=== PATIENT | female | born 1970 | race Caucasian/White ===

== ENCOUNTER 2016-09-21 21:44 | Inpatient (IN) | payer OTHER ==
[2016-09-21 22:38] VITALS: BMI 27.4
[2016-09-21 22:57] LABS: BASOPHILS # (AUTO) 0.1 X10^3/uL (0.0-0.1); BASOPHILS % (AUTO) 0.8 % (0.2-1.0); EOSINOPHILS # (AUTO) 0.1 x10^3/uL (0.0-0.2); EOSINOPHILS % (AUTO) 1.6 % (0.9-2.9); HEMATOCRIT 38.5 % (36.0-47.0); HEMOGLOBIN 13.2 g/dL (12.0-16.0); LYMPHOCYTES # (AUTO) 2.6 X10^3/uL (1.3-2.9); LYMPHOCYTES % (AUTO) 27.3 % (21.0-51.0); MEAN CORPUSCULAR HEMOGLOBIN 27.5 pg (27.0-34.0); MEAN CORPUSCULAR HGB CONC 34.3 g/dL (33.0-35.0); MEAN CORPUSCULAR VOLUME 80.2 fL (80.0-100.0); MEAN PLATELET VOLUME 8.3 fL (7.4-11.0); MONOCYTES # (AUTO) 0.8 x10^3/uL (0.3-0.8); MONOCYTES % (AUTO) 8.5 % (0.0-13.0); NEUTROPHILS # (AUTO) 5.9 x10^3/uL (2.2-4.8); NEUTROPHILS % (AUTO) 61.8 % (42.0-75.0); PLATELET COUNT 256 X10^3/uL (150.0-450.0); RED CELL DISTRIBUTION WIDTH 13.4 % (11.6-16.5); WHITE BLOOD COUNT 9.5 X10^3/uL (3.6-10.0)
[2016-09-21] MEDS: NS 1000 ML 1,000 ML IV PRN (23:02)
[2016-09-21] MEDS: SOLU-Medrol 125 MG VIAL IVP SCH (23:02)
[2016-09-21] MEDS: ROCEPHIN VIAL 1 GM 1 GM in NS 50 ML IV + SPIKE MINIBAG* 50 ML IV SCH (23:02)
[2016-09-21 23:08] LABS: ALANINE AMINOTRANSFERASE 41 Units/L (12-78); ALKALINE PHOSPHATASE 110 Units/L (46-116); ASPARTATE AMINO TRANSFERASE 21 Units/L (15-37); BLOOD UREA NITROGEN 9 mg/dL (7-18); CALCIUM 8.4 mg/dL (8.5-10.1); CARBON DIOXIDE 27.8 mmol/L (21-32); CHLORIDE 106 mmol/L (98-107); COR CA(FOR HYPOALB) 9.2 mg/dL (8.5-10.1); CREATININE 0.63 mg/dL (0.55-1.02); GLUCOSE 102 mg/dL (65-99); SODIUM 140 mmol/L (136-145); TOTAL PROTEIN 6.5 g/dL (6.4-8.2); eGFR BLACK RACES > 60 (>60); eGFR NON BLACK RACES > 60 (>60)
[2016-09-21] MEDS ORDERED: SALINE 3% 15 ML NEB TX NEB ONE (23:13)
[2016-09-21] MEDS: ZITHROMAX INJ 500 MG VIAL 500 MG in NS 250 ML IV 250 ML IV SCH (23:57)
[2016-09-22] MEDS: DUONEB 0.5 MG/3 MG NEB SCH ×5 (00:53→18:38)
--- NOTE | 2016-09-22 04:18 | RAD ---
Chest AP portable Indication: Pneumonia. Comparison: May 28, 2015 radiograph. Findings: There is no pneumothorax, effusion or consolidation. Heart size is normal. Impression: No acute chest process. Reported By:
[2016-09-22] MEDS ORDERED: ROBITUSSIN DM PO PRN (08:00)
[2016-09-22] MEDS: TUSSIONEX PENNKINETIC SUSP PO SCH ×2 (08:51→20:48)
[2016-09-22] MEDS: PEPCID 20 MG IV PREMIX* 20 MG/50 ML BAG IV SCH ×2 (08:51→20:48)
[2016-09-22] MEDS: ROCEPHIN VIAL 1 GM 1 GM in NS 50 ML IV + SPIKE MINIBAG* 50 ML IV SCH (08:51)
[2016-09-22] MEDS: ZITHROMAX INJ 500 MG VIAL 500 MG in NS 250 ML IV 250 ML IV SCH (08:52)
[2016-09-22] MEDS: SOLU-Medrol 125 MG VIAL IVP SCH ×3 (13:04→22:18)
[2016-09-22] MEDS: DIFLUCAN 100 MG IV (MIX by PHARMACY)* 100 MG/50 ML BAG IV SCH (13:21)
--- NOTE | 2016-09-22 14:01 | DR.H&P ---
H&P - History & Physical for Day of: H&P Date: 09/21/16 - Chief Complaint Chief Complaint: FEVER, CCC - Allergies Allergies/Adverse Reactions: Allergies Allergy/AdvReac Type Severity Reaction Status Date / Time amoxicillin Allergy Verified 09/21/16 22:14 penicillin G Allergy Verified 09/21/16 22:14 - History of Present Illness History of Present Illness: 46 WF DIRECT ADMIT FOR FAILED OUTPT BRONCHITIS. PT HAS TAKEN PO ATBX AND RESP TREATMENTS WITHOUT IMPROVEMENT. PT CONTINUES WITH COUGH, SPUTUM PRODUCTION AND WEAKNESS. PLAN TO ADMIT FOR PNEUMONIA PROTOCOL AND RESUME HOME MEDS - Past Medical History Past Medical History: Anxiety, Arthritis, Depression, GERD - Past Surgical History Surgical History: Cholecystectomy, Hysterectomy, Tonsillectomy, Other - Family History Family Medical History: Diabetes Mellitus, [place], Heart Failure, Hypertension - Social History Does patient currently use any type of tobacco product: No Have you used tobacco products in the last 12 months: No Type of Tobacco Use: None Does any household member use tobacco: No Alcohol Use: Occasionally Drug Use: None - Medications Home Medications: Guaifenesin/Phenylephrine HCl [Deconex Ir 10-385 mg] 1 tab PO Q4HR 09/21/16 [ History Confirmed 09/21/16] - Review of Systems Constitutional: Fever, Chills, Weakness Eyes: No Symptoms Reported ENT: Nose Congestion, Throat Pain Respiratory: Cough, Sputum Cardiovascular: No Symptoms Reported Gastrointestinal: No Symptoms Reported Genitourinary: No Symptoms Reported Musculoskeletal: Neck Pain Skin: No Symptoms Reported Neurological: No Symptoms Reported - Physical Exam Vital Signs: Temperature 97.9 F Pulse Rate [Left Brachial] 117 Pulse Rate 84 Respiratory Rate 18 Blood Pressure [Right Arm] 96/53 Blood Pressure [Left Arm] 123/59 Blood Pressure 123/59 O2 Sat by Pulse Oximetry 92 Oriented: Normal Eyes: Normal Ear: Normal Nose: Normal Throat: Normal Respiratory: Rhonchi Throughout Cardiovascular: Normal : Normal Auscultation: Bowel Sounds: Normal Palpation: Normal Tenderness: Normal Skin: Normal Musculoskeletal: Back:Lumbar Mood Description: Calm Speech Pattern: Clear, Appropriate - Assessment/Plan (1) Bronchitis Status: Acute Plan: ADMIT IV ATBX, CXR ON ADMISSION, RESP THERAPY ADMISSION LABS CBC CMP SPUTUM CULTURES (2) Nausea & vomiting Qualifiers: Vomiting type: V Vomiting Intractability: V Status: Acute Plan: NAUSEA CONTROL (3) ANNAMARIA (generalized anxiety disorder) Status: Chronic (4) GERD (gastroesophageal reflux disease) Qualifiers: Esophagitis presence: E Status: Chronic
--- NOTE | 2016-09-22 14:07 | PCM.PROG ---
Progress Note - Progress Note for Day of Date: 09/22/16 - Subjective Subjective: CONTINUES TO COUGH WITH PLEURITIC CHEST PAIN - Past Medical Family Social History Past Med/Fam/Surg Hx: No changes since H&P Allergies: Allergies amoxicillin Allergy (Verified 09/21/16 22:14) penicillin G Allergy (Verified 09/21/16 22:14) - Review of Systems ROS: No change since H&P - Vital Signs and I&O's Vital Signs: Temperature 97.9 F Pulse Rate [Left Brachial] 117 Pulse Rate 84 Respiratory Rate 18 Blood Pressure [Right Arm] 96/53 Blood Pressure [Left Arm] 123/59 Blood Pressure 123/59 O2 Sat by Pulse Oximetry 92 Intake and Output: Intake & Output 09/20/16 09/21/16 09/22/16 09/23/16 11:59 11:59 11:59 11:59 Intake Total 440 Balance 440 - Physical Exam Oriented: Normal Eyes: Normal Ear: Normal Nose: Normal Throat: Normal Respiratory: Wheezes, Rhonchi Cardiovascular: Normal : Normal Auscultation: Bowel Sounds: Normal Tenderness: Normal Skin: Normal Musculoskeletal: Back:Lumbar Mood Description: Calm Speech Pattern: Clear, Appropriate - Laboratory and Diagnostics Result Diagrams: 09/21/16 22:40 09/21/16 22:40 Labs: 09/22/16 00:00 Sputum - Expectorated Sputum - Final Laboratory WBC 9.5 X10^3/uL (3.6-10.0) 09/21/16 22:40 RBC 4.80 X10^6/uL (3.5-5.4) 09/21/16 22:40 Hgb 13.2 g/dL (12.0-16.0) 09/21/16 22:40 Hct 38.5 % (36.0-47.0) 09/21/16 22:40 MCV 80.2 fL (80.0-100.0) 09/21/16 22:40 MCH 27.5 pg (27.0-34.0) 09/21/16 22:40 MCHC 34.3 g/dL (33.0-35.0) 09/21/16 22:40 RDW 13.4 % (11.6-16.5) 09/21/16 22:40 Plt Count 256 X10^3/uL (150.0-450.0) 09/21/16 22:40 MPV 8.3 fL (7.4-11.0) 09/21/16 22:40 Neut % 61.8 % (42.0-75.0) 09/21/16 22:40 Lymph % 27.3 % (21.0-51.0) 09/21/16 22:40 [place] % 8.5 % (0.0-13.0) 09/21/16 22:40 Eos % 1.6 % (0.9-2.9) 09/21/16 22:40 Baso % 0.8 % (0.2-1.0) 09/21/16 22:40 Neut # 5.9 x10^3/uL (2.2-4.8) H 09/21/16 22:40 Lymph # 2.6 X10^3/uL (1.3-2.9) 09/21/16 22:40 [place] # 0.8 x10^3/uL (0.3-0.8) 09/21/16 22:40 Eos # 0.1 x10^3/uL (0.0-0.2) 09/21/16 22:40 Baso # 0.1 X10^3/uL (0.0-0.1) 09/21/16 22:40 Absolute Nucleated RBC 0.0 /100WBC 09/21/16 22:40 Sodium 140 mmol/L (136-145) 09/21/16 22:40 Corrected Sodium TNP 09/21/16 22:40 Potassium 3.7 mmol/L (3.5-5.1) 09/21/16 22:40 Chloride 106 mmol/L (98-107) 09/21/16 22:40 Carbon Dioxide 27.8 mmol/L (21-32) 09/21/16 22:40 BUN 9 mg/dL (7-18) 09/21/16 22:40 Creatinine 0.63 mg/dL (0.55-1.02) 09/21/16 22:40 Est GFR (MDRD) Af Amer > 60 (>60) 09/21/16 22:40 Est GFR (MDRD) Non-Af > 60 (>60) 09/21/16 22:40 Glucose 102 mg/dL (65-99) H 09/21/16 22:40 Calcium 8.4 mg/dL (8.5-10.1) L 09/21/16 22:40 Corrected Calcium 9.2 mg/dL (8.5-10.1) 09/21/16 22:40 Total Bilirubin 0.30 mg/dL (0.2-1.0) 09/21/16 22:40 AST 21 Units/L (15-37) 09/21/16 22:40 ALT 41 Units/L (12-78) 09/21/16 22:40 Alkaline Phosphatase 110 Units/L (46-116) 09/21/16 22:40 Total Protein 6.5 g/dL (6.4-8.2) 09/21/16 22:40 Albumin 3.0 g/dL (3.4-5.0) L 09/21/16 22:40 Globulin 3.5 g/dL (2.5-4.5) 09/21/16 22:40 Albumin/Globulin Ratio 0.9 Ratio (1.1-2.1) L 09/21/16 22:40 - Plan (1) Bronchitis Status: Acute Plan: IV ATBX, IV SOLU MEDROL, RESP THERAPY, ENCOURAGE ORAL HYDRATION, PULMONARY TOILETING (2) Nausea & vomiting Status: Acute Qualifiers: Vomiting type: V Vomiting Intractability: V Plan: NAUSEA CONTROL (3) ANNAMARIA (generalized anxiety disorder) Status: Chronic Plan: RESUME HOME MEDS (4) GERD (gastroesophageal reflux disease) Status: Chronic Qualifiers: Esophagitis presence: E
[2016-09-23] MEDS: DUONEB 0.5 MG/3 MG NEB SCH ×4 (00:37→16:59)
[2016-09-23 05:49] LABS: BASOPHILS % (AUTO) 0.2 % (0.2-1.0); HEMATOCRIT 36.8 % (36.0-47.0); HEMOGLOBIN 12.2 g/dL (12.0-16.0); LYMPHOCYTES # (AUTO) 0.8 X10^3/uL (1.3-2.9); LYMPHOCYTES % (AUTO) 5.6 % (21.0-51.0); MEAN CORPUSCULAR HEMOGLOBIN 26.7 pg (27.0-34.0); MEAN CORPUSCULAR HGB CONC 33.1 g/dL (33.0-35.0); MEAN CORPUSCULAR VOLUME 80.6 fL (80.0-100.0); MEAN PLATELET VOLUME 10.2 fL (7.4-11.0); MONOCYTES # (AUTO) 0.2 x10^3/uL (0.3-0.8); MONOCYTES % (AUTO) 1.7 % (0.0-13.0); NEUTROPHILS % (AUTO) 92.5 % (42.0-75.0); PLATELET COUNT 243 X10^3/uL (150.0-450.0); RED BLOOD COUNT 4.57 X10^6/uL (3.5-5.4); WHITE BLOOD COUNT 14.1 X10^3/uL (3.6-10.0)
[2016-09-23 06:05] LABS: ALANINE AMINOTRANSFERASE 40 Units/L (12-78); ALBUMIN 2.8 g/dL (3.4-5.0); ALKALINE PHOSPHATASE 100 Units/L (46-116); ASPARTATE AMINO TRANSFERASE 16 Units/L (15-37); BLOOD UREA NITROGEN 5 mg/dL (7-18); CALCIUM 8.4 mg/dL (8.5-10.1); CARBON DIOXIDE 25.5 mmol/L (21-32); CHLORIDE 110 mmol/L (98-107); COR CA(FOR HYPOALB) 9.4 mg/dL (8.5-10.1); COR NA(FOR HYPERGLY) 147 mmol/L (136-145); CREATININE 0.73 mg/dL (0.55-1.02); GLUCOSE 176 mg/dL (65-99); SODIUM 145 mmol/L (136-145); TOTAL PROTEIN 6.3 g/dL (6.4-8.2); eGFR BLACK RACES > 60 (>60); eGFR NON BLACK RACES > 60 (>60)
[2016-09-23 06:27] LABS: PLATELET MORPHOLOGY COMMENT NORMAL (NORMAL)
[2016-09-23] MEDS: SOLU-Medrol 125 MG VIAL IVP SCH ×2 (06:33→06:34)
[2016-09-23] MEDS: ROCEPHIN VIAL 1 GM 1 GM in NS 50 ML IV + SPIKE MINIBAG* 50 ML IV SCH (09:28)
[2016-09-23] MEDS: TUSSIONEX PENNKINETIC SUSP PO SCH ×2 (09:28→20:08)
[2016-09-23] MEDS: ZITHROMAX INJ 500 MG VIAL 500 MG in NS 250 ML IV 250 ML IV SCH (09:28)
[2016-09-23] MEDS: DIFLUCAN 100 MG IV (MIX by PHARMACY)* 100 MG/50 ML BAG IV SCH (09:28)
[2016-09-23] MEDS: PEPCID 20 MG IV PREMIX* 20 MG/50 ML BAG IV SCH ×2 (09:28→20:07)
[2016-09-23] MEDS: NS 1000 ML 1,000 ML IV PRN (14:47)
--- NOTE | 2016-09-23 18:14 | PCM.PROG ---
Progress Note - Progress Note for Day of Date: 09/23/16 - Subjective Subjective: CONTINUES TO COUGH WITH PLEURITIC CHEST PAIN AND MILD SPUTUM PRODUCTION, YEAST INFECTION - Past Medical Family Social History Past Med/Fam/Surg Hx: No changes since H&P Allergies: Allergies amoxicillin Allergy (Verified 09/21/16 22:14) penicillin G Allergy (Verified 09/21/16 22:14) - Review of Systems ROS: No change since H&P - Vital Signs and I&O's Vital Signs: Temperature 98.2 F Pulse Rate [Left Brachial] 68 Pulse Rate 69 Respiratory Rate 18 Blood Pressure [Right Arm] 114/67 Blood Pressure [Left Arm] 123/59 Blood Pressure 123/59 O2 Sat by Pulse Oximetry 94 Intake and Output: Intake & Output 09/21/16 09/22/16 09/23/16 09/24/16 11:59 11:59 11:59 11:59 Intake Total 440 1450 1220 Balance 440 1450 1220 - Physical Exam Oriented: Normal Eyes: Normal Ear: Normal Nose: Normal Throat: Normal Respiratory: Rhonchi (CENTRAL) Cardiovascular: Normal : Normal Auscultation: Bowel Sounds: Normal Tenderness: Normal Skin: Normal Musculoskeletal: Back:Lumbar Mood Description: Calm Speech Pattern: Clear, Appropriate - Laboratory and Diagnostics Result Diagrams: 09/23/16 03:15 09/23/16 03:15 Labs: 09/22/16 00:00 Sputum - Expectorated Sputum Sputum Culture - Preliminary 09/22/16 00:00 Sputum - Expectorated Sputum - Final Laboratory WBC 14.1 X10^3/uL (3.6-10.0) H 09/23/16 03:15 RBC 4.57 X10^6/uL (3.5-5.4) 09/23/16 03:15 Hgb 12.2 g/dL (12.0-16.0) 09/23/16 03:15 Hct 36.8 % (36.0-47.0) 09/23/16 03:15 MCV 80.6 fL (80.0-100.0) 09/23/16 03:15 MCH 26.7 pg (27.0-34.0) L 09/23/16 03:15 MCHC 33.1 g/dL (33.0-35.0) 09/23/16 03:15 RDW 14.0 % (11.6-16.5) 09/23/16 03:15 Plt Count 243 X10^3/uL (150.0-450.0) 09/23/16 03:15 Plt Count Comment Adequate (ADEQUATE) 09/23/16 03:15 MPV 10.2 fL (7.4-11.0) 09/23/16 03:15 Neut % 92.5 % (42.0-75.0) H 09/23/16 03:15 Lymph % 5.6 % (21.0-51.0) L 09/23/16 03:15 White % 1.7 % (0.0-13.0) 09/23/16 03:15 Eos % 0.0 % (0.9-2.9) L 09/23/16 03:15 Baso % 0.2 % (0.2-1.0) 09/23/16 03:15 Neut # 13.0 x10^3/uL (2.2-4.8) H 09/23/16 03:15 Lymph # 0.8 X10^3/uL (1.3-2.9) L 09/23/16 03:15 White # 0.2 x10^3/uL (0.3-0.8) L 09/23/16 03:15 Eos # 0.0 x10^3/uL (0.0-0.2) 09/23/16 03:15 Baso # 0.0 X10^3/uL (0.0-0.1) 09/23/16 03:15 Absolute Nucleated RBC 0.1 /100WBC 09/23/16 03:15 Total Counted 100 09/23/16 03:15 Neutrophils % (Manual) 89 % (39-76) H 09/23/16 03:15 Lymphocytes % (Manual) 9 % (13-43) L 09/23/16 03:15 Monocytes % (Manual) 2 % (4-9) L 09/23/16 03:15 Plt Morphology Comment Normal (NORMAL) 09/23/16 03:15 RBC Morphology Normal (NORMAL) 09/23/16 03:15 Sodium 145 mmol/L (136-145) 09/23/16 03:15 Corrected Sodium 147 mmol/L (136-145) H 09/23/16 03:15 Potassium 3.8 mmol/L (3.5-5.1) 09/23/16 03:15 Chloride 110 mmol/L (98-107) H 09/23/16 03:15 Carbon Dioxide 25.5 mmol/L (21-32) 09/23/16 03:15 BUN 5 mg/dL (7-18) L 09/23/16 03:15 Creatinine 0.73 mg/dL (0.55-1.02) 09/23/16 03:15 Est GFR (MDRD) Af Amer > 60 (>60) 09/23/16 03:15 Est GFR (MDRD) Non-Af > 60 (>60) 09/23/16 03:15 Glucose 176 mg/dL (65-99) H 09/23/16 03:15 Calcium 8.4 mg/dL (8.5-10.1) L 09/23/16 03:15 Corrected Calcium 9.4 mg/dL (8.5-10.1) 09/23/16 03:15 Total Bilirubin 0.20 mg/dL (0.2-1.0) 09/23/16 03:15 AST 16 Units/L (15-37) 09/23/16 03:15 ALT 40 Units/L (12-78) 09/23/16 03:15 Alkaline Phosphatase 100 Units/L (46-116) 09/23/16 03:15 Total Protein 6.3 g/dL (6.4-8.2) L 09/23/16 03:15 Albumin 2.8 g/dL (3.4-5.0) L 09/23/16 03:15 Globulin 3.5 g/dL (2.5-4.5) 09/23/16 03:15 Albumin/Globulin Ratio 0.8 Ratio (1.1-2.1) L 09/23/16 03:15 - Plan (1) Bronchitis Status: Inactive Plan: CONTINUE IV ATBX, IV HYDRATION, ROBITUSSIN DM. REPEAT AM CBC, CMP (2) Nausea & vomiting Status: Acute Qualifiers: Vomiting type: V Vomiting Intractability: V Plan: NAUSEA CONTROL (3) ANNAMARIA (generalized anxiety disorder) Status: Chronic Plan: RESUME HOME MEDS (4) GERD (gastroesophageal reflux disease) Status: Chronic Qualifiers: Esophagitis presence: E (5) Yeast infection Status: Acute Plan: DIFLUCAN, MONISTAT
[2016-09-24] MEDS: DUONEB 0.5 MG/3 MG NEB SCH ×4 (01:25→17:00)
[2016-09-24 05:36] LABS: BASOPHILS # (AUTO) 0.1 X10^3/uL (0.0-0.1); BASOPHILS % (AUTO) 0.4 % (0.2-1.0); HEMATOCRIT 36.6 % (36.0-47.0); LYMPHOCYTES # (AUTO) 1.6 X10^3/uL (1.3-2.9); LYMPHOCYTES % (AUTO) 10.4 % (21.0-51.0); MEAN CORPUSCULAR HEMOGLOBIN 26.8 pg (27.0-34.0); MEAN CORPUSCULAR HGB CONC 32.8 g/dL (33.0-35.0); MEAN CORPUSCULAR VOLUME 81.7 fL (80.0-100.0); MEAN PLATELET VOLUME 10.1 fL (7.4-11.0); MONOCYTES # (AUTO) 0.8 x10^3/uL (0.3-0.8); MONOCYTES % (AUTO) 5.2 % (0.0-13.0); NEUTROPHILS # (AUTO) 12.9 x10^3/uL (2.2-4.8); PLATELET COUNT 238 X10^3/uL (150.0-450.0); RED BLOOD COUNT 4.49 X10^6/uL (3.5-5.4); RED CELL DISTRIBUTION WIDTH 14.1 % (11.6-16.5); WHITE BLOOD COUNT 15.4 X10^3/uL (3.6-10.0)
[2016-09-24 05:47] LABS: ALANINE AMINOTRANSFERASE 35 Units/L (12-78); ALBUMIN 2.5 g/dL (3.4-5.0); ALKALINE PHOSPHATASE 84 Units/L (46-116); ASPARTATE AMINO TRANSFERASE 13 Units/L (15-37); BLOOD UREA NITROGEN 14 mg/dL (7-18); CALCIUM 8.1 mg/dL (8.5-10.1); CARBON DIOXIDE 27.8 mmol/L (21-32); CHLORIDE 110 mmol/L (98-107); COR CA(FOR HYPOALB) 9.3 mg/dL (8.5-10.1); CREATININE 0.67 mg/dL (0.55-1.02); GLUCOSE 109 mg/dL (65-99); SODIUM 145 mmol/L (136-145); TOTAL PROTEIN 5.6 g/dL (6.4-8.2); eGFR BLACK RACES > 60 (>60); eGFR NON BLACK RACES > 60 (>60)
[2016-09-24] MEDS: NS 1000 ML 1,000 ML IV PRN (06:48)
--- NOTE | 2016-09-24 07:13 | RAD ---
HISTORY: Follow up pneumonia Study: Chest one view Comparison: September 21, 2016 Findings: The heart is within normal limits in size. The michelle are normal. The lungs are well inflated. Subtle right basilar infiltrate has developed since the prior examination. The remainder of the lung g[place] are clear. No pleural effusions are identified. The bony thorax is unremarkable. IMPRESSION: Subtle right basilar lung infiltrate Reported By:
[2016-09-24] MEDS: ZITHROMAX INJ 500 MG VIAL 500 MG in NS 250 ML IV 250 ML IV SCH (09:22)
[2016-09-24] MEDS: LEVAQUIN PREMIX IV 750 MG 750 MG/150 ML BAG IV SCH (09:23)
[2016-09-24] MEDS: TUSSIONEX PENNKINETIC SUSP PO SCH ×2 (09:23→21:02)
[2016-09-24] MEDS: PEPCID 20 MG IV PREMIX* 20 MG/50 ML BAG IV SCH ×2 (09:23→21:02)
[2016-09-24] MEDS: NORCO 10/325 TAB PO PRN (10:35)
[2016-09-24] MEDS: DIFLUCAN 100 MG IV (MIX by PHARMACY)* 100 MG/50 ML BAG IV SCH (10:36)
[2016-09-24] MEDS: SOLU-Medrol 40 MG VIAL IVP SCH ×3 (11:00→21:01)
--- NOTE | 2016-09-24 14:41 | PCM.PROG ---
Progress Note - Progress Note for Day of Date: 09/24/16 - Subjective Subjective: MILDLY PRODUCTIVE COUGH, CO VERY FATIGUED AND WEAK. CXR REVEALED RLL PNEUMONIA, CONSULT RESP FOR SMART VEST, ADD LEVAQUIN, SOLU MEDROL IV. REPEAT AM LABS, ENCOURAGE RESP TOILETING - Past Medical Family Social History Past Med/Fam/Surg Hx: No changes since H&P Allergies: Allergies amoxicillin Allergy (Verified 09/21/16 22:14) penicillin G Allergy (Verified 09/21/16 22:14) - Review of Systems ROS: No change since H&P - Vital Signs and I&O's Vital Signs: Temperature 97.7 F Pulse Rate [Left Brachial] 60 Pulse Rate 82 Respiratory Rate 18 Blood Pressure [Right Arm] 111/67 Blood Pressure [Left Arm] 123/75 Blood Pressure 123/59 O2 Sat by Pulse Oximetry 93 Intake and Output: Intake & Output 09/22/16 09/23/16 09/24/16 09/25/16 11:59 11:59 11:59 11:59 Intake Total 440 1450 1920 Balance 440 1450 1920 - Physical Exam Oriented: Normal Eyes: Normal Ear: Normal Nose: Normal Throat: Normal Respiratory: Diminished, Rhonchi (CENTRAL) Cardiovascular: Normal : Normal Auscultation: Bowel Sounds: Normal Tenderness: Normal Skin: Normal Musculoskeletal: Back:Lumbar Mood Description: Calm Speech Pattern: Clear, Appropriate - Laboratory and Diagnostics Result Diagrams: 09/24/16 03:10 09/24/16 03:10 Labs: 09/22/16 00:00 Sputum - Expectorated Sputum Sputum Culture - Final Acinetobacter Lwoffii 09/22/16 00:00 Sputum - Expectorated Sputum - Final Laboratory WBC 15.4 X10^3/uL (3.6-10.0) H 09/24/16 03:10 RBC 4.49 X10^6/uL (3.5-5.4) 09/24/16 03:10 Hgb 12.0 g/dL (12.0-16.0) 09/24/16 03:10 Hct 36.6 % (36.0-47.0) 09/24/16 03:10 MCV 81.7 fL (80.0-100.0) 09/24/16 03:10 MCH 26.8 pg (27.0-34.0) L 09/24/16 03:10 MCHC 32.8 g/dL (33.0-35.0) L 09/24/16 03:10 RDW 14.1 % (11.6-16.5) 09/24/16 03:10 Plt Count 238 X10^3/uL (150.0-450.0) 09/24/16 03:10 Plt Count Comment Adequate (ADEQUATE) 09/23/16 03:15 MPV 10.1 fL (7.4-11.0) 09/24/16 03:10 Neut % 84.0 % (42.0-75.0) H 09/24/16 03:10 Lymph % 10.4 % (21.0-51.0) L 09/24/16 03:10 [place] % 5.2 % (0.0-13.0) 09/24/16 03:10 Eos % 0.0 % (0.9-2.9) L 09/24/16 03:10 Baso % 0.4 % (0.2-1.0) 09/24/16 03:10 Neut # 12.9 x10^3/uL (2.2-4.8) H 09/24/16 03:10 Lymph # 1.6 X10^3/uL (1.3-2.9) 09/24/16 03:10 [place] # 0.8 x10^3/uL (0.3-0.8) 09/24/16 03:10 Eos # 0.0 x10^3/uL (0.0-0.2) 09/24/16 03:10 Baso # 0.1 X10^3/uL (0.0-0.1) 09/24/16 03:10 Absolute Nucleated RBC 0.1 /100WBC 09/24/16 03:10 Total Counted 100 09/23/16 03:15 Neutrophils % (Manual) 89 % (39-76) H 09/23/16 03:15 Lymphocytes % (Manual) 9 % (13-43) L 09/23/16 03:15 Monocytes % (Manual) 2 % (4-9) L 09/23/16 03:15 Plt Morphology Comment Normal (NORMAL) 09/23/16 03:15 RBC Morphology Normal (NORMAL) 09/23/16 03:15 Sodium 145 mmol/L (136-145) 09/24/16 03:10 Corrected Sodium TNP 09/24/16 03:10 Potassium 3.6 mmol/L (3.5-5.1) 09/24/16 03:10 Chloride 110 mmol/L (98-107) H 09/24/16 03:10 Carbon Dioxide 27.8 mmol/L (21-32) 09/24/16 03:10 BUN 14 mg/dL (7-18) 09/24/16 03:10 Creatinine 0.67 mg/dL (0.55-1.02) 09/24/16 03:10 Est GFR (MDRD) Af Amer > 60 (>60) 09/24/16 03:10 Est GFR (MDRD) Non-Af > 60 (>60) 09/24/16 03:10 Glucose 109 mg/dL (65-99) H 09/24/16 03:10 Calcium 8.1 mg/dL (8.5-10.1) L 09/24/16 03:10 Corrected Calcium 9.3 mg/dL (8.5-10.1) 09/24/16 03:10 Total Bilirubin 0.10 mg/dL (0.2-1.0) L 09/24/16 03:10 AST 13 Units/L (15-37) L 09/24/16 03:10 ALT 35 Units/L (12-78) 09/24/16 03:10 Alkaline Phosphatase 84 Units/L (46-116) 09/24/16 03:10 Total Protein 5.6 g/dL (6.4-8.2) L 09/24/16 03:10 Albumin 2.5 g/dL (3.4-5.0) L 09/24/16 03:10 Globulin 3.1 g/dL (2.5-4.5) 09/24/16 03:10 Albumin/Globulin Ratio 0.8 Ratio (1.1-2.1) L 09/24/16 03:10 - Plan (1) Pneumonia Status: Acute Qualifiers: Pneumonia type: P Aspiration pneumonia type: A Laterality: L Lung location: L Plan: IV ATBX, SPUTUM, RESP THERAPY- JET NEBS, PULMONARY TOILETING, SMART VEST. CXR, REPEAT AM LABS, AMBULATE PT (2) Nausea & vomiting Status: Acute Qualifiers: Vomiting type: V Vomiting Intractability: V Plan: NAUSEA CONTROL (3) ANNAMARIA (generalized anxiety disorder) Status: Chronic Plan: RESUME HOME MEDS (4) GERD (gastroesophageal reflux disease) Status: Chronic Qualifiers: Esophagitis presence: E (5) Yeast infection Status: Acute Plan: DIFLUCAN, MONISTAT
[2016-09-24] MEDS ORDERED: MILK OF MAGNESIA PO PRN (19:17)
[2016-09-24] MEDS: PULMICORT NEB TX 0.5 MG NEB SCH (20:09)
[2016-09-24] MEDS: COLACE CAP 100 MG PO SCH (21:02)
[2016-09-24] MEDS ORDERED: MICONAZOLE 7 CRM TOP PRN (21:40)
[2016-09-25] MEDS: DUONEB 0.5 MG/3 MG NEB SCH ×5 (00:04→21:00)
[2016-09-25] MEDS: NS 1000 ML 1,000 ML IV PRN ×2 (01:16→20:32)
[2016-09-25 05:36] LABS: BASOPHILS % (AUTO) 0.2 % (0.2-1.0); EOSINOPHILS % (AUTO) 0.1 % (0.9-2.9); HEMATOCRIT 37.2 % (36.0-47.0); HEMOGLOBIN 12.6 g/dL (12.0-16.0); LYMPHOCYTES # (AUTO) 0.9 X10^3/uL (1.3-2.9); LYMPHOCYTES % (AUTO) 8.1 % (21.0-51.0); MEAN CORPUSCULAR HGB CONC 33.9 g/dL (33.0-35.0); MEAN CORPUSCULAR VOLUME 79.8 fL (80.0-100.0); MEAN PLATELET VOLUME 9.8 fL (7.4-11.0); MONOCYTES # (AUTO) 0.2 x10^3/uL (0.3-0.8); MONOCYTES % (AUTO) 2.2 % (0.0-13.0); NEUTROPHILS # (AUTO) 9.6 x10^3/uL (2.2-4.8); NEUTROPHILS % (AUTO) 89.4 % (42.0-75.0); PLATELET COUNT 232 X10^3/uL (150.0-450.0); RED BLOOD COUNT 4.66 X10^6/uL (3.5-5.4); RED CELL DISTRIBUTION WIDTH 14.2 % (11.6-16.5); WHITE BLOOD COUNT 10.7 X10^3/uL (3.6-10.0)
[2016-09-25 05:40] LABS: ALANINE AMINOTRANSFERASE 44 Units/L (12-78); ALBUMIN 2.7 g/dL (3.4-5.0); ALKALINE PHOSPHATASE 86 Units/L (46-116); ASPARTATE AMINO TRANSFERASE 16 Units/L (15-37); BLOOD UREA NITROGEN 11 mg/dL (7-18); CALCIUM 8.3 mg/dL (8.5-10.1); CARBON DIOXIDE 29.4 mmol/L (21-32); CHLORIDE 106 mmol/L (98-107); COR CA(FOR HYPOALB) 9.3 mg/dL (8.5-10.1); COR NA(FOR HYPERGLY) 142 mmol/L (136-145); CREATININE 0.78 mg/dL (0.55-1.02); GLUCOSE 130 mg/dL (65-99); SODIUM 141 mmol/L (136-145); TOTAL PROTEIN 6.1 g/dL (6.4-8.2); eGFR BLACK RACES > 60 (>60); eGFR NON BLACK RACES > 60 (>60)
[2016-09-25] MEDS: ZITHROMAX INJ 500 MG VIAL 500 MG in NS 250 ML IV 250 ML IV SCH (08:13)
[2016-09-25] MEDS: LEVAQUIN PREMIX IV 750 MG 750 MG/150 ML BAG IV SCH (08:14)
[2016-09-25] MEDS: PEPCID 20 MG IV PREMIX* 20 MG/50 ML BAG IV SCH ×2 (08:14→20:31)
[2016-09-25] MEDS: TUSSIONEX PENNKINETIC SUSP PO SCH ×2 (08:15→20:31)
[2016-09-25] MEDS: DIFLUCAN 100 MG IV (MIX by PHARMACY)* 100 MG/50 ML BAG IV SCH (08:15)
[2016-09-25] MEDS: PULMICORT NEB TX 0.5 MG NEB SCH ×2 (08:39→21:00)
[2016-09-25] MEDS ORDERED: MYCOLOG-II CREAM ONE (08:42)
[2016-09-25] MEDS: MYCOLOG-II CREAM TOP SCH ×2 (10:13→20:35)
--- NOTE | 2016-09-25 11:27 | PCM.PROG ---
Progress Note - Progress Note for Day of Date: 09/25/16 - Subjective Subjective: MS. WYNNE IS A 46 YEAR OLD PATIENT OF 'S ADMITTED FOR BRONCHITIS R/O PNEUMONIA. PATIENT WAS ALERT ON MORNING ROUNDS WITH COMPLAINTS OF PRODUCTIVE COUGH AND WEAKNESS. VITALS THIS AM 97.8, 59, 20, 94%, 134/81. CBC REPORTS WBC 10.7. CXR REVEALED SUBTLE RIGHT BASILAR LUNG INFILTRATE. WE WILL CONTINUE SMART VEST, LEVAQUIN, SOLU MEDROL IV, AND REPEAT AM LABS. - Past Medical Family Social History Past Med/Fam/Surg Hx: No changes since H&P Allergies: Allergies amoxicillin Allergy (Verified 09/21/16 22:14) penicillin G Allergy (Verified 09/21/16 22:14) - Review of Systems ROS: No change since H&P - Vital Signs and I&O's Vital Signs: Temperature 97.8 F Pulse Rate [Right Brachial] 59 Pulse Rate [Left Brachial] 53 Pulse Rate 92 Respiratory Rate 20 Blood Pressure [Right Arm] 134/81 Blood Pressure [Left Arm] 128/82 Blood Pressure 123/59 O2 Sat by Pulse Oximetry 98 Intake and Output: Intake & Output 09/22/16 09/23/16 09/24/16 09/25/16 11:59 11:59 11:59 11:59 Intake Total 440 1450 1920 2220 Balance 440 1450 1920 2220 - Physical Exam Oriented: Normal Eyes: Normal Ear: Normal Nose: Normal Throat: Normal Respiratory: Diminished, Rhonchi (CENTRAL) Cardiovascular: Normal : Normal Auscultation: Bowel Sounds: Normal Palpation: Normal Tenderness: Normal Skin: Normal Musculoskeletal: Back:Lumbar Mood Description: Calm Speech Pattern: Clear, Appropriate - Laboratory and Diagnostics Result Diagrams: 09/25/16 04:35 09/25/16 04:35 Labs: 09/22/16 00:00 Sputum - Expectorated Sputum Sputum Culture - Final Acinetobacter Lwoffii 09/22/16 00:00 Sputum - Expectorated Sputum - Final Laboratory WBC 10.7 X10^3/uL (3.6-10.0) H 09/25/16 04:35 RBC 4.66 X10^6/uL (3.5-5.4) 09/25/16 04:35 Hgb 12.6 g/dL (12.0-16.0) 09/25/16 04:35 Hct 37.2 % (36.0-47.0) 09/25/16 04:35 MCV 79.8 fL (80.0-100.0) L 09/25/16 04:35 MCH 27.0 pg (27.0-34.0) 09/25/16 04:35 MCHC 33.9 g/dL (33.0-35.0) 09/25/16 04:35 RDW 14.2 % (11.6-16.5) 09/25/16 04:35 Plt Count 232 X10^3/uL (150.0-450.0) 09/25/16 04:35 Plt Count Comment Adequate (ADEQUATE) 09/23/16 03:15 MPV 9.8 fL (7.4-11.0) 09/25/16 04:35 Neut % 89.4 % (42.0-75.0) H 09/25/16 04:35 Lymph % 8.1 % (21.0-51.0) L 09/25/16 04:35 [place] % 2.2 % (0.0-13.0) 09/25/16 04:35 Eos % 0.1 % (0.9-2.9) L 09/25/16 04:35 Baso % 0.2 % (0.2-1.0) 09/25/16 04:35 Neut # 9.6 x10^3/uL (2.2-4.8) H 09/25/16 04:35 Lymph # 0.9 X10^3/uL (1.3-2.9) L 09/25/16 04:35 [place] # 0.2 x10^3/uL (0.3-0.8) L 09/25/16 04:35 Eos # 0.0 x10^3/uL (0.0-0.2) 09/25/16 04:35 Baso # 0.0 X10^3/uL (0.0-0.1) 09/25/16 04:35 Absolute Nucleated RBC 0.0 /100WBC 09/25/16 04:35 Total Counted 100 09/23/16 03:15 Neutrophils % (Manual) 89 % (39-76) H 09/23/16 03:15 Lymphocytes % (Manual) 9 % (13-43) L 09/23/16 03:15 Monocytes % (Manual) 2 % (4-9) L 09/23/16 03:15 Plt Morphology Comment Normal (NORMAL) 09/23/16 03:15 RBC Morphology Normal (NORMAL) 09/23/16 03:15 Sodium 141 mmol/L (136-145) 09/25/16 04:35 Corrected Sodium 142 mmol/L (136-145) 09/25/16 04:35 Potassium 3.9 mmol/L (3.5-5.1) 09/25/16 04:35 Chloride 106 mmol/L (98-107) 09/25/16 04:35 Carbon Dioxide 29.4 mmol/L (21-32) 09/25/16 04:35 BUN 11 mg/dL (7-18) 09/25/16 04:35 Creatinine 0.78 mg/dL (0.55-1.02) 09/25/16 04:35 Est GFR (MDRD) Af Amer > 60 (>60) 09/25/16 04:35 Est GFR (MDRD) Non-Af > 60 (>60) 09/25/16 04:35 Glucose 130 mg/dL (65-99) H 09/25/16 04:35 Calcium 8.3 mg/dL (8.5-10.1) L 09/25/16 04:35 Corrected Calcium 9.3 mg/dL (8.5-10.1) 09/25/16 04:35 Total Bilirubin 0.20 mg/dL (0.2-1.0) 09/25/16 04:35 AST 16 Units/L (15-37) 09/25/16 04:35 ALT 44 Units/L (12-78) 09/25/16 04:35 Alkaline Phosphatase 86 Units/L (46-116) 09/25/16 04:35 Total Protein 6.1 g/dL (6.4-8.2) L 09/25/16 04:35 Albumin 2.7 g/dL (3.4-5.0) L 09/25/16 04:35 Globulin 3.4 g/dL (2.5-4.5) 09/25/16 04:35 Albumin/Globulin Ratio 0.8 Ratio (1.1-2.1) L 09/25/16 04:35 - Plan (1) Pneumonia Status: Acute Qualifiers: Pneumonia type: P Aspiration pneumonia type: A Laterality: right Lung location: L Plan: IV ATBX, SPUTUM, RESP THERAPY- JET NEBS, PULMONARY TOILETING, SMART VEST. CXR, REPEAT AM LABS, AMBULATE PT,CONTINUE TO MONITOR
[2016-09-25] MEDS: NORCO 10/325 TAB PO PRN (15:07)
--- NOTE | 2016-09-25 18:21 | RAD ---
HISTORY: Follow up pneumonia Study: Chest two-view Comparison: September 24, 2016 Findings: The heart is within normal limits in size. The michelle are normal. The lungs are now well inflated and clear. The previously noted right basilar lung infiltrate has resolved. The remainder of the lung fi elds are clear. No pleural effusions are identified. The bony thorax is unremarkable. IMPRESSION: Lungs now clear with resolution of the previously noted right basilar lung infiltrate Reported By:
[2016-09-25] MEDS: COLACE CAP 100 MG PO SCH (20:31)
[2016-09-26] MEDS: DUONEB 0.5 MG/3 MG NEB SCH ×5 (00:51→16:47)
[2016-09-26 06:23] LABS: BASOPHILS % (AUTO) 0.3 % (0.2-1.0); EOSINOPHILS % (AUTO) 0.3 % (0.9-2.9); HEMATOCRIT 37.3 % (36.0-47.0); HEMOGLOBIN 12.6 g/dL (12.0-16.0); LYMPHOCYTES % (AUTO) 30.6 % (21.0-51.0); MEAN CORPUSCULAR HEMOGLOBIN 27.1 pg (27.0-34.0); MEAN CORPUSCULAR HGB CONC 33.7 g/dL (33.0-35.0); MEAN CORPUSCULAR VOLUME 80.4 fL (80.0-100.0); MEAN PLATELET VOLUME 9.5 fL (7.4-11.0); MONOCYTES # (AUTO) 0.5 x10^3/uL (0.3-0.8); MONOCYTES % (AUTO) 5.3 % (0.0-13.0); NEUTROPHILS # (AUTO) 6.2 x10^3/uL (2.2-4.8); NEUTROPHILS % (AUTO) 63.5 % (42.0-75.0); PLATELET COUNT 195 X10^3/uL (150.0-450.0); RED BLOOD COUNT 4.64 X10^6/uL (3.5-5.4); RED CELL DISTRIBUTION WIDTH 14.3 % (11.6-16.5); WHITE BLOOD COUNT 9.9 X10^3/uL (3.6-10.0)
[2016-09-26 06:44] LABS: ALANINE AMINOTRANSFERASE 34 Units/L (12-78); ALBUMIN 2.4 g/dL (3.4-5.0); ALKALINE PHOSPHATASE 78 Units/L (46-116); ASPARTATE AMINO TRANSFERASE 12 Units/L (15-37); BLOOD UREA NITROGEN 14 mg/dL (7-18); CALCIUM 7.8 mg/dL (8.5-10.1); CHLORIDE 108 mmol/L (98-107); COR CA(FOR HYPOALB) 9.1 mg/dL (8.5-10.1); GLUCOSE 81 mg/dL (65-99); SODIUM 144 mmol/L (136-145); TOTAL PROTEIN 5.5 g/dL (6.4-8.2); eGFR BLACK RACES > 60 (>60); eGFR NON BLACK RACES > 60 (>60)
[2016-09-26] MEDS ORDERED: K-LYTE EFFERVESCENT PO PRN (06:50)
[2016-09-26] MEDS ORDERED: K-RIDER 10 MEQ/NS 100 ML 10 MEQ/100 ML BAG IV PRN (06:50)
[2016-09-26] MEDS ORDERED: POTASSIUM CHLORIDE LIQ 20 MEQ UDC PO PRN (06:50)
[2016-09-26] MEDS: PULMICORT NEB TX 0.5 MG NEB SCH ×2 (08:01→20:35)
[2016-09-26] MEDS: DIFLUCAN 100 MG IV (MIX by PHARMACY)* 100 MG/50 ML BAG IV SCH (08:14)
[2016-09-26] MEDS: LEVAQUIN PREMIX IV 750 MG 750 MG/150 ML BAG IV SCH (08:14)
[2016-09-26] MEDS: PEPCID 20 MG IV PREMIX* 20 MG/50 ML BAG IV SCH ×2 (08:14→20:29)
[2016-09-26] MEDS: ZITHROMAX INJ 500 MG VIAL 500 MG in NS 250 ML IV 250 ML IV SCH (08:14)
[2016-09-26] MEDS: TUSSIONEX PENNKINETIC SUSP PO SCH ×2 (08:15→20:28)
[2016-09-26] MEDS: K-DUR TAB 20 MEQ PO PRN (08:15)
[2016-09-26] MEDS: MYCOLOG-II CREAM TOP SCH ×2 (08:16→20:29)
--- NOTE | 2016-09-26 11:00 | PCM.PROG ---
Progress Note - Progress Note for Day of Date: 09/26/16 - Subjective Subjective: MS. WYNNE IS A 46 YEAR OLD PATIENT OF 'S ADMITTED FOR BRONCHITIS R/O PNEUMONIA. PATIENT WAS IN BED WITH SMART VEST RUNNING ON MORNING ROUNDS. PATIENT IS WITH COMPLAINTS OF PRODUCTIVE COUGH. PATIENT STATES THAT SHE DOESNT FEEL LIKE SHE IS READY FOR DISCHARGE TODAY. ON EXAMINATION, LUNGS WERE CLEAR TO AUSCULTATION. VITALS THIS AM 98.3, 61, 18, 94%, 120/79. CBC REPORTS WBC 10.7. CMP REPORTS POTASSIUM 3.4, CHLORIDE 108, CALCIUM 7.8, AST 12, ALBUMIN 2.4. CXR WAS MARLY. WE WILL CONTINUE SMART VEST, LEVAQUIN, SOLU MEDROL IV, AND REPEAT AM LABS. - Past Medical Family Social History Past Med/Fam/Surg Hx: No changes since H&P Allergies: Allergies amoxicillin Allergy (Verified 09/21/16 22:14) penicillin G Allergy (Verified 09/21/16 22:14) - Review of Systems ROS: No change since H&P - Vital Signs and I&O's Vital Signs: Temperature 98.3 F Pulse Rate [Right Brachial] 61 Pulse Rate [Left Brachial] 53 Pulse Rate 78 Respiratory Rate 18 Blood Pressure [Right Arm] 120/79 Blood Pressure [Left Arm] 128/82 Blood Pressure 123/59 O2 Sat by Pulse Oximetry 94 Intake and Output: Intake & Output 09/23/16 09/24/16 09/25/16 09/26/16 11:59 11:59 11:59 11:59 Intake Total 1450 1920 2220 2820 Balance 1450 1920 2220 2820 - Physical Exam Oriented: Normal Eyes: Normal Ear: Normal Nose: Normal Throat: Normal Respiratory: Normal Cardiovascular: Normal : Normal Auscultation: Bowel Sounds: Normal Palpation: Normal Tenderness: Normal Skin: Normal Musculoskeletal: Back:Lumbar Mood Description: Calm Speech Pattern: Clear, Appropriate - Laboratory and Diagnostics Result Diagrams: 09/26/16 05:15 09/26/16 05:15 Labs: 09/22/16 00:00 Sputum - Expectorated Sputum Sputum Culture - Final Acinetobacter Lwoffii 09/22/16 00:00 Sputum - Expectorated Sputum - Final Laboratory WBC 9.9 X10^3/uL (3.6-10.0) 09/26/16 05:15 RBC 4.64 X10^6/uL (3.5-5.4) 09/26/16 05:15 Hgb 12.6 g/dL (12.0-16.0) 09/26/16 05:15 Hct 37.3 % (36.0-47.0) 09/26/16 05:15 MCV 80.4 fL (80.0-100.0) 09/26/16 05:15 MCH 27.1 pg (27.0-34.0) 09/26/16 05:15 MCHC 33.7 g/dL (33.0-35.0) 09/26/16 05:15 RDW 14.3 % (11.6-16.5) 09/26/16 05:15 Plt Count 195 X10^3/uL (150.0-450.0) 09/26/16 05:15 Plt Count Comment Adequate (ADEQUATE) 09/23/16 03:15 MPV 9.5 fL (7.4-11.0) 09/26/16 05:15 Neut % 63.5 % (42.0-75.0) 09/26/16 05:15 Lymph % 30.6 % (21.0-51.0) 09/26/16 05:15 Prentiss % 5.3 % (0.0-13.0) 09/26/16 05:15 Eos % 0.3 % (0.9-2.9) L 09/26/16 05:15 Baso % 0.3 % (0.2-1.0) 09/26/16 05:15 Neut # 6.2 x10^3/uL (2.2-4.8) H 09/26/16 05:15 Lymph # 3.0 X10^3/uL (1.3-2.9) H 09/26/16 05:15 Prentiss # 0.5 x10^3/uL (0.3-0.8) 09/26/16 05:15 Eos # 0.0 x10^3/uL (0.0-0.2) 09/26/16 05:15 Baso # 0.0 X10^3/uL (0.0-0.1) 09/26/16 05:15 Absolute Nucleated RBC 0.0 /100WBC 09/26/16 05:15 Total Counted 100 09/23/16 03:15 Neutrophils % (Manual) 89 % (39-76) H 09/23/16 03:15 Lymphocytes % (Manual) 9 % (13-43) L 09/23/16 03:15 Monocytes % (Manual) 2 % (4-9) L 09/23/16 03:15 Plt Morphology Comment Normal (NORMAL) 09/23/16 03:15 RBC Morphology Normal (NORMAL) 09/23/16 03:15 Sodium 144 mmol/L (136-145) 09/26/16 05:15 Corrected Sodium TNP 09/26/16 05:15 Potassium 3.4 mmol/L (3.5-5.1) L 09/26/16 05:15 Chloride 108 mmol/L (98-107) H 09/26/16 05:15 Carbon Dioxide 29.0 mmol/L (21-32) 09/26/16 05:15 BUN 14 mg/dL (7-18) 09/26/16 05:15 Creatinine 0.80 mg/dL (0.55-1.02) 09/26/16 05:15 Est GFR (MDRD) Af Amer > 60 (>60) 09/26/16 05:15 Est GFR (MDRD) Non-Af > 60 (>60) 09/26/16 05:15 Glucose 81 mg/dL (65-99) 09/26/16 05:15 Calcium 7.8 mg/dL (8.5-10.1) L 09/26/16 05:15 Corrected Calcium 9.1 mg/dL (8.5-10.1) 09/26/16 05:15 Total Bilirubin 0.20 mg/dL (0.2-1.0) 09/26/16 05:15 AST 12 Units/L (15-37) L 09/26/16 05:15 ALT 34 Units/L (12-78) 09/26/16 05:15 Alkaline Phosphatase 78 Units/L (46-116) 09/26/16 05:15 Total Protein 5.5 g/dL (6.4-8.2) L 09/26/16 05:15 Albumin 2.4 g/dL (3.4-5.0) L 09/26/16 05:15 Globulin 3.1 g/dL (2.5-4.5) 09/26/16 05:15 Albumin/Globulin Ratio 0.8 Ratio (1.1-2.1) L 09/26/16 05:15 - Plan (1) Pneumonia Status: Acute Qualifiers: Pneumonia type: P Aspiration pneumonia type: A Laterality: right Lung location: L Plan: IV ATBX, SPUTUM, RESP THERAPY- JET NEBS, PULMONARY TOILETING, SMART VEST, CXR, REPEAT AM LABS, AMBULATE PT,CONTINUE TO MONITOR
--- NOTE | 2016-09-26 16:53 | RAD ---
HISTORY: 46-year-old female with shortness of breath. Study: Single frontal view of the chest. Comparison: Chest radiographs September 25, 2016. Findings: The trachea is midline. The cardiac silhouette is unremarkable. The lungs are clear without focal infiltrate or effusion. The bony thorax is unremarkable. IMPRESSION: 1. No acute cardiopulmonary disease. Reported By:
[2016-09-26] MEDS: COLACE CAP 100 MG PO SCH (20:28)
[2016-09-26] MEDS ORDERED: ZANTAC PO ONE (20:36)
[2016-09-27] MEDS: DUONEB 0.5 MG/3 MG NEB SCH ×2 (00:46→05:09)
[2016-09-27 05:36] LABS: ALANINE AMINOTRANSFERASE 33 Units/L (12-78); ALBUMIN 2.6 g/dL (3.4-5.0); ALKALINE PHOSPHATASE 87 Units/L (46-116); ASPARTATE AMINO TRANSFERASE 11 Units/L (15-37); BLOOD UREA NITROGEN 10 mg/dL (7-18); CALCIUM 8.3 mg/dL (8.5-10.1); CARBON DIOXIDE 31.2 mmol/L (21-32); CHLORIDE 102 mmol/L (98-107); COR CA(FOR HYPOALB) 9.4 mg/dL (8.5-10.1); CREATININE 0.67 mg/dL (0.55-1.02); GLUCOSE 76 mg/dL (65-99); SODIUM 142 mmol/L (136-145); eGFR BLACK RACES > 60 (>60); eGFR NON BLACK RACES > 60 (>60)
[2016-09-27 05:41] LABS: BASOPHILS % (AUTO) 0.3 % (0.2-1.0); EOSINOPHILS # (AUTO) 0.1 x10^3/uL (0.0-0.2); EOSINOPHILS % (AUTO) 1.2 % (0.9-2.9); HEMATOCRIT 40.7 % (36.0-47.0); HEMOGLOBIN 13.8 g/dL (12.0-16.0); LYMPHOCYTES # (AUTO) 3.4 X10^3/uL (1.3-2.9); MEAN CORPUSCULAR HGB CONC 33.8 g/dL (33.0-35.0); MEAN CORPUSCULAR VOLUME 79.8 fL (80.0-100.0); MEAN PLATELET VOLUME 9.5 fL (7.4-11.0); MONOCYTES # (AUTO) 0.6 x10^3/uL (0.3-0.8); MONOCYTES % (AUTO) 5.9 % (0.0-13.0); NEUTROPHILS # (AUTO) 5.4 x10^3/uL (2.2-4.8); NEUTROPHILS % (AUTO) 56.6 % (42.0-75.0); PLATELET COUNT 215 X10^3/uL (150.0-450.0); RED CELL DISTRIBUTION WIDTH 14.2 % (11.6-16.5); WHITE BLOOD COUNT 9.5 X10^3/uL (3.6-10.0)
--- NOTE | 2016-09-27 06:54 | RAD ---
HISTORY: Shortness of breath Study: Chest one view Comparison: September 26, 2016 Findings: The trachea is midline. The cardiac silhouette is unremarkable. The lungs are clear without focal infiltrate or effusion. The bony thorax is unremarkable. IMPRESSION: 1. No acute cardiopulmonary disease. Reported By:
[2016-09-27] MEDS: PULMICORT NEB TX 0.5 MG NEB SCH (08:10)
[2016-09-27] MEDS: PEPCID 20 MG IV PREMIX* 20 MG/50 ML BAG IV SCH (08:50)
[2016-09-27] MEDS: DIFLUCAN 100 MG IV (MIX by PHARMACY)* 100 MG/50 ML BAG IV SCH (08:50)
[2016-09-27] MEDS: LEVAQUIN PREMIX IV 750 MG 750 MG/150 ML BAG IV SCH (08:50)
[2016-09-27] MEDS: K-DUR TAB 20 MEQ PO PRN (08:51)
[2016-09-27] MEDS: MYCOLOG-II CREAM TOP SCH (08:52)
[2016-09-27] MEDS: TUSSIONEX PENNKINETIC SUSP PO SCH (08:52)
[2016-09-27 11:18] VITALS: BP 140/92
== END 2016-09-27 11:45 | disposition home or self-care (01) | DRG 194 ==
LOC: MED/SURG 21:44
PROVIDERS: ADMIT Internal Medicine; ATTEND Internal Medicine
DX: J16.8 Pneumonia due to other specified infectious organisms (principal); B37.89 Other sites of candidiasis; J20.8 Acute bronchitis due to other specified organisms; R53.1 Weakness; F41.8 Other specified anxiety disorders; M13.89 Other specified arthritis, multiple sites; K21.9 Gastro-esophageal reflux disease without esophagitis; F32.89 Other specified depressive episodes; R11.2 Nausea with vomiting, unspecified; B96.89 Other specified bacterial agents as the cause of diseases classified elsewhere
CPT/HCPCS: 36415; 71010; 71020; 80053; 84132; 85025; 87070; 87077; 87186; 87205; 94640; 94669; 94760; 99221; A4222; S0028; J0456; J0696; J1956; J2920; J2930; J7620; J7626

== ENCOUNTER 2016-12-16 13:12 | Day surgery (SDC) | payer OTHER ==
[2016-12-16] MEDS ORDERED: D5 LR 1000 ML 1,000 ML IV ONE (13:18)
[2016-12-16] MEDS ORDERED: DIPRIVAN VIAL 20 ML ONE (14:35)
[2016-12-16 15:15] VITALS: BP 118/67
== END 2016-12-16 15:10 | disposition home or self-care (01) ==
LOC: SURG1 13:12
PROVIDERS: ATTEND Internal Medicine
PROC: 0DJD8ZZ Inspection of Lower Intestinal Tract, Via Natural or Artificial Opening Endoscopic (ICD-10-PCS; principal; 2016-12-16 17:30)
PROC: 0DB68ZX Excision of Stomach, Via Natural or Artificial Opening Endoscopic, Diagnostic (ICD-10-PCS; principal; 2016-12-16 17:30)
DX: K44.9 Diaphragmatic hernia without obstruction or gangrene (principal); K20.8 Other esophagitis; K29.60 Other gastritis without bleeding; K21.9 Gastro-esophageal reflux disease without esophagitis; R10.84 Generalized abdominal pain; R11.0 Nausea
CPT/HCPCS: A4217; J3490; J7120

== ENCOUNTER → 2017-08-09 | Outpatient (CLI) | payer OTHER ==
--- NOTE | 2017-08-09 14:53 | MG ---
HISTORY: SCREENING Comparison: 04/29/2016 FINDINGS: Bilateral CC and MLO projections of the right and left breast were obtained. Scattered fibroglandula r tissue is seen to be present. No significant architectural distortion, mass or clustered microcalc ifications can be observed to suggest malignancy. No skin thickening or nipple retraction is appreci ated. No pathological lymphadenopathy can be identified. IMPRESSION: NO RADIOGRAPHIC EVIDENCE OF MALIGNANCY. ACR CATEGORY I - NEGATIVE EXAM. FOLLOW-UP EXAM 1 YEAR. Diagnostic CAD was utilized and reviewed. * 0 (ZERO) - ASSESSMENT INCOMPLETE; ADDITIONAL IMAGING IS NEEDED. * 1/ (ONE) - NEGATIVE. * 2/II (TWO) - BENIGN FINDINGS. * 3/III (THREE) - PROBABLY BENIGN FINDING; SHORT INTERVAL FOLLOW-UP SUGGESTED. * 4/IV (FOUR) - SUSPICIOUS ABNORMALITY; BIOPSY SHOULD BE CONSIDERED. * 5/V - HIGHLY SUSPICIOUS OF MALIGNANCY; BIOPSY SHOULD BE PERFORMED. A NEGATIVE X-RAY REPORT SHOULD NOT DELAY BIOPSY IF A DOMINANT OR CLINICALLY SUSPICIOUS MASS IS PRESENT; 4 TO 8 PERCENT OF CANCERS ARE NOT IDENTIFIED BY X-RAY. A NEGA TIVE REPORT MAY REINFORCE THE CLINICAL IMPRESSION. ADENOSIS AND DENSE BREASTS MAY OBSCURE AN UNDERLY ING NEOPLASM. Reported By:
== END ==
LOC: RAD 08:38
PROVIDERS: ATTEND Obstetrics & Gynecology
DX: Z12.31 Encounter for screening mammogram for malignant neoplasm of breast (principal)
CPT/HCPCS: 77067

== ENCOUNTER 2017-11-28 11:28 | Observation (INO) ==
[2017-11-28 12:59] VITALS: BMI 27.4
--- NOTE | 2017-11-28 12:59 | DR.H&P ---
H&P - History & Physical for Day of: H&P Date: 11/28/17 - Chief Complaint Chief Complaint: "migraine for 7 days" - History of Present Illness History of Present Illness: 47 WF DIRECT ADMIT FROM DR ROSA OFFICE AFTER PRESENTING WITH CO INTRACTABLE MIGRAINE X 7 DAYS, WAS EVALUATED IN ER, GIVEN IM TORADOL WITHOUT RELIEF. PT HAS TAKEN PRESCRIPTION FIORICET, HYDROCODONE AND MOTRIN 800MG WITHOUT IMPROVEMENT. PT CO VISION IMPAIRMENT, DIZZINESS AND HUERTA. PT HAS PMH OF HTN, AR, C SPINE DDD. PT ADMITTED FOR TREATMENT OF INTRACTALBE MIGRAINE - Past Medical History Past Medical History: Anxiety, Arthritis, Depression, GERD - Past Surgical History Surgical History: Cholecystectomy, Hysterectomy, Tonsillectomy, Other - Family History Family Medical History: Diabetes Mellitus, MD, Heart Failure, Hypertension - Social History Does patient currently use any type of tobacco product: No Have you used tobacco products in the last 12 months: No Type of Tobacco Use: Cigarettes Does any household member use tobacco: No Alcohol Use: None Drug Use: None - Medications Home Medications: amoxicillin Allergy (Verified 09/21/16 22:14) penicillin G Allergy (Verified 09/21/16 22:14) - Review of Systems Constitutional: Weakness Eyes: Vision Change ENT: No Symptoms Reported Respiratory: No Symptoms Reported Cardiovascular: No Symptoms Reported Gastrointestinal: Nausea, Vomiting Genitourinary: No Symptoms Reported Musculoskeletal: Neck Pain Skin: No Symptoms Reported Neurological: Other (HUERTA, DIZZINESS) - Physical Exam Vital Signs: Blood Pressure [Right Arm] 118/80 Blood Pressure [Left Arm] 140/92 Blood Pressure 118/67 Oriented: Normal Eyes: Blurred Vision Ear: Normal Nose: Normal Throat: Normal Respiratory: Clear Throughout Cardiovascular: Normal : Normal Auscultation: Bowel Sounds: Normal Palpation: Normal Tenderness: Normal Skin: Decreased Turgur Musculoskeletal: Tender Psychiatric: Normal Mood Description: Calm Speech Pattern: Clear, Appropriate - Assessment/Plan (1) Intractable migraine Status: Acute Plan: ADMIT, CT HEAD W/O. PAIN AND NAUSEA CONTROL, HYDRATE. SUPPLEMENTAL O2, VERIFY HOME MEDS. PHENERGAN, TORADOL, BP CONTROL. ADMISSION LABS CBC CMP CRP SED RATE (2) Vision impairment Status: Acute (3) ANNAMARIA (generalized anxiety disorder) Status: Chronic (4) GERD (gastroesophageal reflux disease) Status: Chronic - Allergies Allergies/Adverse Reactions: Allergies Allergy/AdvReac Type Severity Reaction Status Date / Time amoxicillin Allergy Verified 09/21/16 22:14 penicillin G Allergy Verified 09/21/16 22:14
[2017-11-28] MEDS: NS 1000 ML 1,000 ML IV SCH (13:04)
[2017-11-28] MEDS: PHENERGAN INJ 25 MG IVP PRN (13:05)
[2017-11-28] MEDS: TORADOL 15 MG VIAL IVP PRN (13:05)
[2017-11-28] MEDS ORDERED: ZANTAC PO ONE (13:10)
[2017-11-28 13:16] LABS: BASOPHILS # (AUTO) 0.1 X10^3/uL (0.0-0.1); BASOPHILS % (AUTO) 0.9 % (0.2-1.0); EOSINOPHILS # (AUTO) 0.1 x10^3/uL (0.0-0.2); EOSINOPHILS % (AUTO) 1.7 % (0.9-2.9); HEMOGLOBIN 13.6 g/dL (12.0-16.0); LYMPHOCYTES # (AUTO) 1.7 X10^3/uL (1.3-2.9); LYMPHOCYTES % (AUTO) 25.8 % (21.0-51.0); MEAN CORPUSCULAR HEMOGLOBIN 26.9 pg (27.0-34.0); MEAN CORPUSCULAR HGB CONC 33.1 g/dL (33.0-35.0); MEAN CORPUSCULAR VOLUME 81.2 fL (80.0-100.0); MEAN PLATELET VOLUME 8.7 fL (7.4-11.0); MONOCYTES # (AUTO) 0.3 x10^3/uL (0.3-0.8); MONOCYTES % (AUTO) 4.6 % (0.0-13.0); NEUTROPHILS # (AUTO) 4.4 x10^3/uL (2.2-4.8); PLATELET COUNT 260 X10^3/uL (150.0-450.0); RED BLOOD COUNT 5.05 X10^6/uL (3.5-5.4); RED CELL DISTRIBUTION WIDTH 14.2 % (11.6-16.5); WHITE BLOOD COUNT 6.6 X10^3/uL (3.6-10.0)
[2017-11-28 13:25] LABS: ALANINE AMINOTRANSFERASE 29 Units/L (12-78); ALBUMIN 3.3 g/dL (3.4-5.0); ALKALINE PHOSPHATASE 124 Units/L (46-116); ASPARTATE AMINO TRANSFERASE 20 Units/L (15-37); BLOOD UREA NITROGEN 13 mg/dL (7-18); CALCIUM 8.5 mg/dL (8.5-10.1); CARBON DIOXIDE 32.7 mmol/L (21-32); CHLORIDE 106 mmol/L (98-107); COR CA(FOR HYPOALB) 9.1 mg/dL (8.5-10.1); COR NA(FOR HYPERGLY) 144 mmol/L (136-145); CREATININE 0.87 mg/dL (0.55-1.02); SODIUM 144 mmol/L (136-145); TOTAL PROTEIN 6.7 g/dL (6.4-8.2); eGFR NON BLACK RACES > 60 (>60)
[2017-11-28] MEDS: ZANTAC PO SCH (13:31)
[2017-11-28] MEDS ORDERED: ZANTAC PO SCH (14:00)
[2017-11-28] MEDS ORDERED: ESTRACE PO SCH (14:00)
[2017-11-28] MEDS: PERCOCET TAB 5/325 MG PO PRN (16:00)
[2017-11-28] MEDS: FLEXERIL TAB 10 MG PO PRN (16:00)
--- NOTE | 2017-11-28 16:23 | CT ---
HISTORY: Headache with nausea Study: CT brain without contrast Comparison: None Technique: Multiple axial images of the brain were obtained from the skull base to the vertex without administra tion of IV contrast. Findings: No acute intraparenchymal hemorrhage or mass can be identified. No extra-axial fluid collections are seen. No alteration in the attenuation of the brain parenchyma can be identified to suggest acute o r subacute ischemic change. The ventricular system is symmetric and nondilated. The extracranial st ructures are grossly unremarkable. IMPRESSION: 1. No acute intracranial process can be identified. Reported By:
[2017-11-28] MEDS ORDERED: DECADRON INJ PRESERVATIVE-FREE IM ONE (18:11)
[2017-11-28] MEDS ORDERED: DECADRON INJ IM ONE (18:15)
[2017-11-28] MEDS ORDERED: DEMEROL INJ IM PRN (18:17)
[2017-11-28] MEDS: PROTONIX TAB 40 MG PO SCH (20:11)
[2017-11-28] MEDS: COLACE CAP 100 MG PO SCH (20:11)
[2017-11-28] MEDS: ESTRACE PO SCH (20:13)
[2017-11-28] MEDS ORDERED: K-RIDER 10 MEQ/NS 100 ML 10 MEQ/100 ML BAG IV PRN (21:16)
[2017-11-28] MEDS ORDERED: POTASSIUM CHL 60 MEQ/NS 0.45% 500 ML IV PRN (21:16)
[2017-11-28] MEDS ORDERED: POTASSIUM CHLORIDE LIQ 20 MEQ UDC PO PRN (21:16)
[2017-11-28] MEDS ORDERED: POTASSIUM CHL 40 MEQ/NS 0.45% 500 ML IV PRN (21:16)
[2017-11-28] MEDS ORDERED: K-LYTE EFFERVESCENT PO PRN (21:16)
[2017-11-28] MEDS: MAGNESIUM SULFATE 1 GRAM/100 mL PREMIX 1 GM/100 ML BAG IV PRN ×2 (21:38→23:22)
[2017-11-28] MEDS ORDERED: K-DUR TAB 20 MEQ PO SCH (22:00)
[2017-11-29] MEDS: TORADOL 15 MG VIAL IVP PRN ×2 (02:07→22:54)
[2017-11-29] MEDS: NS 1000 ML 1,000 ML IV SCH ×2 (04:00→17:12)
[2017-11-29 05:33] LABS: BASOPHILS % (AUTO) 0.2 % (0.2-1.0); HEMATOCRIT 40.7 % (36.0-47.0); HEMOGLOBIN 13.7 g/dL (12.0-16.0); LYMPHOCYTES # (AUTO) 0.7 X10^3/uL (1.3-2.9); LYMPHOCYTES % (AUTO) 10.6 % (21.0-51.0); MEAN CORPUSCULAR HEMOGLOBIN 27.5 pg (27.0-34.0); MEAN CORPUSCULAR HGB CONC 33.8 g/dL (33.0-35.0); MEAN CORPUSCULAR VOLUME 81.4 fL (80.0-100.0); MEAN PLATELET VOLUME 9.2 fL (7.4-11.0); MONOCYTES # (AUTO) 0 x10^3/uL (0.3-0.8); MONOCYTES % (AUTO) 0.7 % (0.0-13.0); NEUTROPHILS # (AUTO) 5.4 x10^3/uL (2.2-4.8); NEUTROPHILS % (AUTO) 88.5 % (42.0-75.0); PLATELET COUNT 269 X10^3/uL (150.0-450.0); RED CELL DISTRIBUTION WIDTH 13.9 % (11.6-16.5); WHITE BLOOD COUNT 6.2 X10^3/uL (3.6-10.0)
[2017-11-29 05:38] LABS: ALANINE AMINOTRANSFERASE 34 Units/L (12-78); ALBUMIN 3.2 g/dL (3.4-5.0); ALKALINE PHOSPHATASE 132 Units/L (46-116); ASPARTATE AMINO TRANSFERASE 18 Units/L (15-37); BLOOD UREA NITROGEN 12 mg/dL (7-18); CALCIUM 8.4 mg/dL (8.5-10.1); CARBON DIOXIDE 29.9 mmol/L (21-32); CHLORIDE 105 mmol/L (98-107); COR NA(FOR HYPERGLY) 143 mmol/L (136-145); CREATININE 0.85 mg/dL (0.55-1.02); MAGNESIUM 2.4 mg/dL (1.7-2.9); SODIUM 141 mmol/L (136-145); TOTAL PROTEIN 6.9 g/dL (6.4-8.2); eGFR NON BLACK RACES > 60 (>60)
[2017-11-29] MEDS: PERCOCET TAB 5/325 MG PO PRN ×2 (07:26→18:22)
[2017-11-29] MEDS: PHENERGAN INJ 25 MG IVP PRN ×2 (07:27→18:31)
[2017-11-29] MEDS: FLEXERIL TAB 10 MG PO PRN (07:27)
[2017-11-29] MEDS: ESTRACE PO SCH (08:08)
[2017-11-29] MEDS ORDERED: IMITREX INJ SC ONE (08:18)
[2017-11-29] MEDS ORDERED: IMITREX TAB PO ONE ×2 (08:28→17:17)
--- NOTE | 2017-11-29 10:17 | RAD ---
HISTORY: Neck pain Study: Cervical spine five views Comparison: None Findings: Prevertebral soft tissues are normal. The alignment is normal. The vertebral bodies are of average he ight. The disc heights are preserved. The posterior elements are intact. The neural foramina are morrison nt. IMPRESSION: No significant abnormality identified Reported By:
[2017-11-29] MEDS ORDERED: DEMEROL INJ IVP ONE (12:35)
[2017-11-29] MEDS ORDERED: TORADOL 30 MG VIAL IVP ONE (12:48)
--- NOTE | 2017-11-29 17:28 | PCM.PROG ---
Progress Note - Progress Note for Day of Date of Exam: 11/29/17 - Subjective Subjective: 47 WF ADMITTED ON 11/29 WITH INTRACTABLE MIGRAINE. PT HAD CT HEAD WITHOUT ACUTE FINDINGS. PT GIVEN PAIN AND NAUSEA CONTROL, BP MONITORING AND CONTINUES WITH CO HEADACHE AND NECK PAIN WITH NAUSEA. 250CCNS BOLUS, IMETREX SQ X1 DOSE, TORADOL IV, ENCOURAGED HYDRATION - Past Medical Family Social History Past Med/Fam/Surg Hx: No changes since H&P Allergies: Allergies amoxicillin Allergy (Verified 09/21/16 22:14) penicillin G Allergy (Verified 09/21/16 22:14) - Review of Systems ROS: No change since H&P - Vital Signs and I&O's Vital Signs: Temperature 98.6 F Pulse Rate [Left Radial] 81 Respiratory Rate 20 Blood Pressure [Right Arm] 90/50 Blood Pressure [Left Arm] 140/92 Blood Pressure 118/67 O2 Sat by Pulse Oximetry 96 Intake and Output: Intake & Output 11/27/17 11/28/17 11/29/17 11/30/17 11:59 11:59 11:59 11:59 Intake Total 1285 / 1285 1675 / 1675 Balance 1285 / 1285 1675 / 1675 - Physical Exam Oriented: Normal Eyes: Blurred Vision Ear: Normal Nose: Normal Throat: Normal Respiratory: Normal Cardiovascular: Normal : Normal Auscultation: Bowel Sounds: Normal Tenderness: Normal Skin: Decreased Turgur Musculoskeletal: Tender Psychiatric: Normal Mood Description: Calm Speech Pattern: Clear, Appropriate - Laboratory and Diagnostics Result Diagrams: 11/29/17 04:34 11/29/17 04:34 Labs: Laboratory WBC 6.2 X10^3/uL (3.6-10.0) 11/29/17 04:34 RBC 5.00 X10^6/uL (3.5-5.4) 11/29/17 04:34 Hgb 13.7 g/dL (12.0-16.0) 11/29/17 04:34 Hct 40.7 % (36.0-47.0) 11/29/17 04:34 MCV 81.4 fL (80.0-100.0) 11/29/17 04:34 MCH 27.5 pg (27.0-34.0) 11/29/17 04:34 MCHC 33.8 g/dL (33.0-35.0) 11/29/17 04:34 RDW 13.9 % (11.6-16.5) 11/29/17 04:34 Plt Count 269 X10^3/uL (150.0-450.0) 11/29/17 04:34 MPV 9.2 fL (7.4-11.0) 11/29/17 04:34 Neut % (Auto) 88.5 % (42.0-75.0) H 11/29/17 04:34 Lymph % (Auto) 10.6 % (21.0-51.0) L 11/29/17 04:34 Wetzel % (Auto) 0.7 % (0.0-13.0) 11/29/17 04:34 Eos % (Auto) 0.0 % (0.9-2.9) L 11/29/17 04:34 Baso % (Auto) 0.2 % (0.2-1.0) 11/29/17 04:34 Neut # (Auto) 5.4 x10^3/uL (2.2-4.8) H 11/29/17 04:34 Lymph # (Auto) 0.7 X10^3/uL (1.3-2.9) L 11/29/17 04:34 Wetzel # (Auto) 0 x10^3/uL (0.3-0.8) L 11/29/17 04:34 Eos # (Auto) 0.0 x10^3/uL (0.0-0.2) 11/29/17 04:34 Baso # (Auto) 0.0 X10^3/uL (0.0-0.1) 11/29/17 04:34 Absolute Nucleated RBC 0.0 /100WBC 11/29/17 04:34 Sodium 141 mmol/L (136-145) 11/29/17 04:34 Corrected Sodium 143 mmol/L (136-145) 11/29/17 04:34 Potassium 4.2 mmol/L (3.5-5.1) 11/29/17 04:34 Chloride 105 mmol/L (98-107) 11/29/17 04:34 Carbon Dioxide 29.9 mmol/L (21-32) 11/29/17 04:34 BUN 12 mg/dL (7-18) 11/29/17 04:34 Creatinine 0.85 mg/dL (0.55-1.02) 11/29/17 04:34 Est GFR (MDRD) Af Amer > 60 (>60) 11/29/17 04:34 Est GFR (MDRD) Non-Af > 60 (>60) 11/29/17 04:34 Glucose 166 mg/dL (65-99) H 11/29/17 04:34 Hemoglobin A1c 5.7 % 11/29/17 04:15 Calcium 8.4 mg/dL (8.5-10.1) L 11/29/17 04:34 Corrected Calcium 9.0 mg/dL (8.5-10.1) 11/29/17 04:34 Magnesium 2.4 mg/dL (1.7-2.9) 11/29/17 04:34 Total Bilirubin 0.20 mg/dL (0.2-1.0) 11/29/17 04:34 AST 18 Units/L (15-37) 11/29/17 04:34 ALT 34 Units/L (12-78) 11/29/17 04:34 Alkaline Phosphatase 132 Units/L (46-116) H 11/29/17 04:34 Total Protein 6.9 g/dL (6.4-8.2) 11/29/17 04:34 Albumin 3.2 g/dL (3.4-5.0) L 11/29/17 04:34 Globulin 3.7 g/dL (2.5-4.5) 11/29/17 04:34 Albumin/Globulin Ratio 0.9 Ratio (1.1-2.1) L 11/29/17 04:34 - Plan (1) Intractable migraine Status: Acute Plan: CT HEAD W/O ACUTE CHANGES. PAIN AND NAUSEA CONTROL, HYDRATE. SUPPLEMENTAL O2, VERIFY HOME MEDS. PHENERGAN, TORADOL, BP CONTROL. C SPINE, AM LABS (2) Vision impairment Status: Acute (3) ANNAMARIA (generalized anxiety disorder) Status: Chronic (4) GERD (gastroesophageal reflux disease) Status: Chronic
[2017-11-29] MEDS: FLONASE NASAL SPRAY ENOSTRIL SCH (18:25)
[2017-11-29] MEDS: CLARITIN-D 12 HOUR TAB PO SCH (18:26)
[2017-11-29] MEDS: PROTONIX TAB 40 MG PO SCH (20:28)
[2017-11-29] MEDS: COLACE CAP 100 MG PO SCH (20:28)
[2017-11-30] MEDS: PERCOCET TAB 5/325 MG PO PRN ×2 (03:52→09:22)
[2017-11-30] MEDS: CLARITIN-D 12 HOUR TAB PO SCH (05:31)
[2017-11-30] MEDS: NS 1000 ML 1,000 ML IV SCH (07:19)
[2017-11-30] MEDS ORDERED: ZITHROMAX INJ 500 MG VIAL 500 MG in NS 250 ML IV 250 ML IV SCH (09:00)
[2017-11-30] MEDS: ZANTAC PO SCH (09:22)
[2017-11-30] MEDS: FLEXERIL TAB 10 MG PO PRN (09:22)
[2017-11-30] MEDS: ESTRACE PO SCH (09:23)
[2017-11-30] MEDS: FLONASE NASAL SPRAY ENOSTRIL SCH (09:23)
[2017-11-30 12:18] VITALS: BP 111/75
== END 2017-11-30 15:10 | disposition home or self-care (01) ==
LOC: MED/SURG
PROVIDERS: ADMIT Internal Medicine; ATTEND Internal Medicine
DX: M54.2 Cervicalgia; K21.9 Gastro-esophageal reflux disease without esophagitis; G43.919 Migraine, unspecified, intractable, without status migrainosus; R11.2 Nausea with vomiting, unspecified; I10 Essential (primary) hypertension; R42 Dizziness and giddiness; F32.89 Other specified depressive episodes; R51 Headache; H53.8 Other visual disturbances; F41.8 Other specified anxiety disorders
CPT/HCPCS: 36415; 70450; 72050; 80053; 83036; 83735; 85025; 94760; A4222; G0378; J0456; J1100; J1885; J2175; J2550; J3030; J3475; J7030; J7050